=== PATIENT | female | born 1955 | race Caucasian/White ===

== ENCOUNTER 2022-08-30 12:16 | Day surgery (SDC) | payer MEDICARE ==
[2022-08-27 13:36] VITALS: BMI 25.0
[~2022-08-30 12:16] MED LIST: LACTATED RINGERS 1,000 ML IV SCH; LIDOCAINE 1% (10MG/ML) FOR IV START INTRADERMA PRN
--- NOTE | 2022-08-30 13:05 | CT ---
EXAMINATION TYPE: CT chest wo con CT DLP: 277.6 mGycm, Automated exposure control for dose reduction was used. DATE OF EXAM: 08/30/2022 12:46 PM COMPARISON: None CLINICAL INDICATION:Female, 67 years old with history of R91.1 Solitary pulmonary nodule; pre-op bron ch TECHNIQUE: Multiple axial images were obtained through the chest. Sagittal and coronal reformats were created for review. Contrast used: mL of (None if empty) Oral contrast used: (None if empty) FINDINGS: LUNGS/ PLEURA: The inferior aspect of the right upper lobe is a cystic nodule with peripheral soft ti ssue measuring roughly 20 x 15 mm with solid component more lateral measuring at least 14 x 8 mm. Ano ther cystic change in the right lung apex with some peripheral soft tissue nodularity which could rep resent scarring. This area measures up to 13 mm with 7 x 2 mm solid component. Left lower lobe reticular opacities noted. There is mild centrilobular paraseptal emphysema changes. No focal consolidation, pneumothorax or pleural effusion. AIRWAY: Scattered bronchial wall dilation. No evidence for bronchial wall thickening scattered other air cysts are seen throughout the lungs. HEART: Size within normal limits. There is moderate to severe coronary artery calcifications. MEDIASTINUM: No gross evidence of adenopathy. VASCULATURE: Atherosclerotic calcifications are present throughout the aorta and its branches. MUSCULOSKELETAL: No acute osseous abnormalities SOFT TISSUES/LYMPH NODES: Unremarkable. LOWER NECK: No significant findings. UPPER ABDOMEN: No significant findings. IMPRESSION: 1. Right upper lobe cystic nodules with peripheral solid component. The largest in the lower aspect of the right upper lobe. 2. COPD and emphysema changes. 3. Moderate to severe coronary artery calcifications.
[2022-08-30 13:29] VITALS: RESP 16
[2022-08-30] MEDS ORDERED: MIDAZOLAM 2 MG/2 ML VIAL ONE (14:53)
[2022-08-30] MEDS ORDERED: LIDOCAINE 2% INJ 20 MG/ML (2 ML VIAL) ONE (14:53)
[2022-08-30] MEDS ORDERED: fentaNYL (PF) 50 MCG/ML 2 ML AMP ONE (14:53)
[2022-08-30] MEDS ORDERED: GLYCOPYRROLATE 0.2 MG/ML 2 ML VIAL ONE (14:53)
[2022-08-30] MEDS ORDERED: ONDANSETRON 4 MG/2 ML VIAL ONE (14:53)
[2022-08-30] MEDS ORDERED: SUCCINYLCHOLINE CHLORIDE 200 MG/10 ML VIAL IV ONE (14:53)
[2022-08-30] MEDS ORDERED: NEOSTIGMINE 1 MG/ML 10 ML VIAL ONE (14:53)
[2022-08-30] MEDS ORDERED: PROPOFOL 10 MG/ML 20 ML VIAL IV ONE (14:53)
[2022-08-30] MEDS ORDERED: ePHEDrine 50 MG/ML 1 ML VIAL ONE (14:53)
[2022-08-30] MEDS ORDERED: ROCURONIUM 10 MG/ML (5 ML VIAL) IV ONE (14:53)
--- NOTE | 2022-08-30 16:13 | P.PCN ---
Date of Procedure: 08/30/22 Operative Findings: Date of Procedure: 08/30/22 Description of Procedure: Operative Findings: Preoperative Diagnosis: right upper lobe cavitating mass Postoperative Diagnosis: Right upper lobe cavitating mass Mediastinal adenopathy Procedure(s) Performed: Flexible bronchoscopy Robotic-assisted bronchoscopy and addition to radial ultrasound evaluation of the lung mass Robotic-assisted transbronchial needle aspirate, transbronchial biopsies, transbronchial brushing of the right upper lobe cavitating mass in addition to a bronchioloalveolar lavage Endobronchial ultrasound and the TBNA of station 11 R mediastinal lymph node Anesthesia: JEREMY Surgeon: Nimisha Morelos Estimated Blood Loss (ml): 0 Pathology: other Condition: stable Disposition: same day Operative Findings: A physical exam was performed. Informed consent was obtained from the patient after explaining all the risks (pneumothorax, life threatening bleeding, infection and adverse effects due to medications), benefits and alternatives to the procedure which the patient appeared to understand and so stated. The patient was connected to the monitoring devices. General anesthesia was induced and the patient was intubated by anesthesia. A final timeout was performed and the procedure confirmed by the attending staff bronchoscopist. The bronchoscope was inserted and the airway examined. The flexible bronchoscope was removed and the robotic bronchoscope was inserted. Registration was completed. I next guided the robotic bronchoscope using the navigation system into the right upper lobe cavitating mass . Once in proper position, the bronchoscope was frozen. The radial EBUS probe was placed through the bronchoscope and confirmed abnormal u/s images vs normal lung. A needle was placed through the working channel and under fluoroscopic guidance, we sampled the area thought to have the mass twice. We then used a cloud biopsy pattern with ultrasound confirmation for 6 additional passes with the needle. U/S evaluation was then used to reconfirm location. Forceps were next introduced through working channel and extended the appropriate distance and 4 transbronchial biopsies were performed using fluoroscopic guidance. The u/s probe was then reinserted to confirm location. When confirmed this process was repeated for a total of 6 transbronchial biopsies. A brush was placed through the extendable working channel for 1 pass with fluoroscopic guidance. Endobronchial brushings of the right upper lobe cavitating mass was done. 60ml of saline was then instilled into the area of the lesion. The robotic bronchoscope was removed and the airway inspected with a flexible bronchoscope and 10 ml of effluent from the BAL was collected. The robotic. There was in order and endobronchial ultrasound was inserted. U sing a bus, evaluation of the mediastinal lymph nodes was done and the patient was found to have a 5 x 9 mm station 11R lymph node . Transbronchial needle aspirate of the station 11 R node was done and a total of 3 passes were obtained from the station. FINDINGS: 1.The airways inspection was essentially within normal limits 2 Successful navigation, ultrasonographic identification, and biopsies of right upper lobe cavitating mass 3 endobronchial ultrasound with transbronchial needle aspirate of station 11 R lymph node RECOMMENDATIONS: Await pathology and cytology results The referring physician will be alerted to the results when available. The patient was advised to follow up with the referring physician with the biopsy results Patient will be called with results.
[2022-08-30 16:24] VITALS: TEMP 98.2
--- NOTE | 2022-08-30 16:27 | FL ---
Intraoperative/procedural fluoroscopic services were provided for bronchoscopy with right upper lobe biopsy. Total fluoroscopy time is 1.16 minutes with a total of 2 submitted images to PACS. Total DAP 0.08408 Gycm2. Please see the operative note for further details.
--- NOTE | 2022-08-30 17:07 | XR ---
EXAMINATION TYPE: XR chest 1V DATE OF EXAM: 08/30/2022 4:53 PM COMPARISON: CT Chest 08/30/2022 TECHNIQUE: XR chest 1V . CLINICAL INDICATION:Female, 67 years old with history of post biopsy; FINDINGS: Lungs/Pleura: Prominent interstitial lung markings are seen scattered throughout the lungs. No eviden ce of pneumothorax or pleural effusion. Right upper lobe airspace opacity corresponding to known pulm onary lesion. Pulmonary vascularity: Unremarkable. Heart/mediastinum: Cardiomediastinal silhouette is unremarkable. Atherosclerotic calcifications are seen in the aorta. Musculoskeletal: No acute osseous pathology. IMPRESSION: 1. Post-biopsy changes without evidence for pneumothorax. 2. Right upper lobe airspace opacity corresponding to known pulmonary lesion.
[2022-08-30 17:34] VITALS: BP 101/63; PULSE 69
== END 2022-08-30 17:45 | disposition home or self-care (01) ==
LOC: ORWHC2ENDO 12:16
PROVIDERS: ATTEND Internal Medicine Critical Care Medicine
DX: C34.11 Malignant neoplasm of upper lobe, right bronchus or lung (principal); J44.9 Chronic obstructive pulmonary disease, unspecified; E78.5 Hyperlipidemia, unspecified; I10 Essential (primary) hypertension; Z79.51 Long term (current) use of inhaled steroids; Z79.899 Other long term (current) drug therapy; Z82.49 Family history of ischemic heart disease and other diseases of the circulatory system; Z86.73 Personal history of transient ischemic attack (TIA), and cerebral infarction without residual deficits
CPT/HCPCS: 88305; 88173; 87252; 87070; 87205; 87116; 87102; 87206; 71045; 71250; 31628; 31629; 31623; 31624; 31652; J2250; J0330; J2710; J2405; J3010; J2704; J2001; S2900; 88341; 88342